=== PATIENT | female | born 1960 | race Caucasian/White ===

== ENCOUNTER 2016-07-04 16:53 | Emergency (ER) | payer BC ==
[~2016-07-04] VITALS: Ht 160 cm; Wt 68.0 kg
[2016-07-04 16:53] VITALS: BP 169/114; PULSE 92; RESP 20; TEMP 98.1; O2SAT 99
[~2016-07-04 16:53] MED LIST: CLON2TAB4 PO; TIZA4TAB11 PO; ZIPR80CA26 PO
--- NOTE | 2016-07-04 16:53 | NUR ---
Patient to ER bed 8 to gown for evaluation. Side rails up. Report given to KADI Webb.
--- NOTE | 2016-07-04 16:57 | NUR ---
ER at bedside examining patient.
[2016-07-04] MEDS ORDERED: NACL 0.9% 1,000 ML IV ONE (17:00)
[2016-07-04] MEDS ORDERED: LORazepam 2 MG/ML VIAL (FOR ER USE) IVP ONE ×2 (17:00→18:45)
--- NOTE | 2016-07-04 17:08 | NUR ---
# 22 gauge angiocath placed to RIGHT AC. Use of asceptic technique. Opsite placed over site. Blood return noted. Blood for lab drawn from site. Flushed with 10 cc of normal saline. No evidence of infiltration noted. Patient tolerated well.
--- NOTE | 2016-07-04 17:10 | NUR ---
PT. TO ER Eric4 FOR ANXIETY RELATED SYMPTOMS, STATES THAT SHE HAD BEEN FEELING ANXIOUS SINCE LAST NIGHT, STATE THAT SHE WAS NOT ABLE TO FIND HER BP MEDICATION WHICH BROUGHT IN ANXIETY, STATES SHE HAD MILD PAIN IN HER HEAD, WHICH FEELS LIKE SOME WEIRD HEADACHE, NO OTHER COMPLAINTS AT THIS TIME HEADACHE 07/04
--- NOTE | 2016-07-04 17:20 | NUR ---
PT. OUT TO RADILOGY [facility]IA [facility]
[2016-07-04 17:22] LABS: BASOPHILS % (AUTO) 0.6 % (0.0-2.0); EOSINOPHILS % (AUTO) 0.5 % (0.0-4.0); HEMATOCRIT 39.5 % (36-48); LYMPHOCYTES # (AUTO) 1.9 K/uL (1.0-5.5); MEAN CORPUSCULAR HEMOGLOBIN 29 pg (27-31); MEAN CORPUSCULAR HGB CONC 33 % (32-36); MEAN CORPUSCULAR VOLUME 87 fL (79.0-98.0); MONOCYTES # (AUTO) 0.5 K/uL (0.0-1.0); MONOCYTES % (AUTO) 9.1 % (1.7-9.3); NEUTROPHILS # (AUTO) 3.1 K/uL (1.8-7.7); NEUTROPHILS % (AUTO) 54.8 % (40.0-70.0); PLATELET COUNT (AUTO) 258 K/uL (130-430); RED BLOOD CELL COUNT(AUTO) 4.55 MIL/uL (4.2-6.2); RED CELL DISTRIBUTION WIDTH 12.7 % (9.0-15.0); WHITE BLOOD COUNT (AUTO) 5.5 K/uL (4.8-10.8)
[2016-07-04 17:36] LABS: CALCIUM 9.1 mg/dL (8.4-11.0); CREATININE 0.97 mg/dL (0.55-1.30); POTASSIUM 3.5 mmol/L (3.5-5.1)
[2016-07-04 17:52] LABS: TOTAL BILIRUBIN 0.3 mg/dL (0.0-1.0); TOTAL PROTEIN, SERUM 8.3 g/dL (6.4-8.3)
[2016-07-04 17:54] LABS: INR 1.1 (0.8-1.2); PROTHROMBIN TIME 11.8 SECS (9.5-12.5)
[2016-07-04] MEDS ORDERED: KETOROLAC TROMETHAMINE 30 MG VIAL IVP ONE (18:00)
[2016-07-04] MEDS ORDERED: PROCHLORPERAZINE EDISYLATE 10 MG/2 ML VIAL IVP ONE (18:00)
--- NOTE | 2016-07-04 18:00 | NUR ---
PT. STATES STILL FEELING ANXIOUS, NOTIFIED, WILL ADMINISTERED 1 MG OF ATIVAN IVP
--- NOTE | 2016-07-04 18:50 | NUR ---
PT. STATES SHE FEELS MUCH BETTER STATES NO PAIN STATES NO ANXIETY
[2016-07-04 19:00] VITALS: BP 121/62; PULSE 67; RESP 18; TEMP 98.3; O2SAT 99
--- NOTE | 2016-07-04 19:00 | NUR ---
Patient given written and verbal discharge instructions and verbalizes understanding. ER MD DR. PORTILLO discussed with patient the results and treatment provided. Patient in stable condition. ID arm band removed. IV catheter removed intact and dressing applied, no active bleeding. NO Rx given. Patient educated on pain management and to follow up with PMD. Pain Scale 0/10 Opportunity for questions provided and answered.
== END 2016-07-04 19:00 | disposition home or self-care (01) ==
LOC: SED 16:53
DX: F41.9 Anxiety disorder, unspecified (principal); I10 Essential (primary) hypertension; Z88.8 Allergy status to other drugs, medicaments and biological substances
CPT/HCPCS: 36415; 70450; 71010; 80053; 84484; 85025; 85610; 85730; 93005; 96361; 96374; 96375; 96376; 99285; J0780; J1885; J2060; J7030

== ENCOUNTER 2016-11-07 09:46 | Inpatient (IN) | payer BC ==
[2016-11-07] VITALS (14 sets, daily range): BP systolic 90–169
[~2016-11-07] VITALS: Ht 160 cm; Wt 64.4 kg
[2016-11-07] MEDS ORDERED: LEVALBUTEROL HCL 0.63 MG/3 ML VIAL.NEB INH SCH (10:15)
[2016-11-07 10:45] LABS: BASOPHILS % (AUTO) 0.3 % (0.0-2.0); EOSINOPHILS % (AUTO) 0.3 % (0.0-4.0); HEMATOCRIT 33.1 % (36-48); HEMOGLOBIN 10.9 g/dL (12.0-16.0); LYMPHOCYTES % (AUTO) 9.8 % (20.5-51.5); MEAN CORPUSCULAR HEMOGLOBIN 28 pg (27-31); MEAN CORPUSCULAR HGB CONC 33 % (32-36); MEAN CORPUSCULAR VOLUME 86 fL (79.0-98.0); MONOCYTES # (AUTO) 0.3 K/uL (0.0-1.0); MONOCYTES % (AUTO) 3.3 % (1.7-9.3); NEUTROPHILS % (AUTO) 86.3 % (40.0-70.0); PLATELET COUNT (AUTO) 219 K/uL (130-430); RED BLOOD CELL COUNT(AUTO) 3.84 MIL/uL (4.2-6.2); RED CELL DISTRIBUTION WIDTH 13.1 % (9.0-15.0); WHITE BLOOD COUNT (AUTO) 10.3 K/uL (4.8-10.8)
[2016-11-07] MEDS ORDERED: IOHEXOL 350 mgI/mL, 150 ML INFUS..BTL IV ONE (10:54)
[2016-11-07 10:57] LABS: CALCIUM 8.4 mg/dL (8.4-11.0); CREATININE 1.19 mg/dL (0.55-1.30); POTASSIUM 3.1 mmol/L (3.5-5.1)
[2016-11-07 11:00] LABS: INR 1.1 (0.8-1.2); PROTHROMBIN TIME 11.9 SECS (9.5-12.5)
[2016-11-07 11:03] LABS: ALBUMIN 2.7 g/dL (3.4-4.8); TOTAL BILIRUBIN 0.4 mg/dL (0.0-1.0); TOTAL PROTEIN, SERUM 6.8 g/dL (6.4-8.3)
[2016-11-07 11:37] LABS: BILIRUBIN,URINE NEGATIVE (NEGATIVE); CLARITY/URINE CLEAR (CLEAR); COLOR,URINE YELLOW (YELLOW); GLUCOSE,URINE NEGATIVE (NEGATIVE); KETONES,URINE NEGATIVE (NEGATIVE); LEUKOCYTE ESTERASE ,URINE NEGATIVE (NEGATIVE); NITRITE, URINE NEGATIVE (NEGATIVE); PROTEIN URINE TRACE (NEGATIVE); UROBILINOGEN,URINE 0.2 (0.2-1.0)
[2016-11-07 11:41] LABS: BLOOD, URINE TRACE (NEGATIVE)
[2016-11-07 11:59] LABS: BACTERIA,URINE RARE /HPF (None Seen); WBC,URINE 0-3 /HPF (0-3)
[2016-11-07] MEDS ORDERED: NS 500 ML IV ONE (12:15)
[2016-11-07] MEDS ORDERED: CEFAZOLIN SODIUM 500 MG in D5W 50 ML IV ONE (12:15)
[2016-11-07] MEDS ORDERED: CEFAZOLIN SODIUM 500 MG VIAL ONE (12:26)
[2016-11-07] MEDS ORDERED: IBUPROFEN 800 MG TABLET PO ONE (12:30)
[2016-11-07] MEDS ORDERED: KETOROLAC TROMETHAMINE 30 MG VIAL IVP ONE (12:30)
[2016-11-07] MEDS ORDERED: LEVOFLOXACIN 500 MG/D5W 100 ML IV ONE (12:57)
[2016-11-07] MEDS ORDERED: VANCOMYCIN HCL 1000 MG/VIAL IV ONE (12:58)
[2016-11-07] MEDS: tiZANidine HCL 4 MG TABLET PO SCH ×2 (14:15→20:52)
[2016-11-07] MEDS ORDERED: POTASSIUM CHLORIDE 20 MEQ TAB.PRT.SR PO ONE (14:15)
[2016-11-07] MEDS ORDERED: IPRATROPIUM/ALBUTEROL SULFATE 3 ML AMPUL.NEB INH PRN (14:15)
[2016-11-07] MEDS ORDERED: LEVOFLOXACIN 500 MG/D5W 100 ML IV SCH (14:30)
[2016-11-07] MEDS ORDERED: MILK OF MAGNESIA 30 ML UDC PO PRN (14:30)
[2016-11-07] MEDS ORDERED: MILK OF MAGNESIA 30 ML UDC PO ONE (14:30)
[2016-11-07] MEDS: clonazePAM 0.5 MG TABLET PO SCH ×4 (15:00→20:53)
[2016-11-07] MEDS: IPRATROPIUM/ALBUTEROL SULFATE 3 ML AMPUL.NEB INH SCH ×3 (15:22→23:57)
[2016-11-07] MEDS: MORPHINE 2 MG/ML INJ. SYRINGE IVP PRN (16:37)
[2016-11-07] MEDS ORDERED: ZIPRASIDONE HCL 20 MG CAPSULE (GEODON) PO SCH (18:00)
[2016-11-07] MEDS ORDERED: NACL 0.9% 1,000 ML IV ONE ×2 (18:00)
[2016-11-07] MEDS ORDERED: VANCOMYCIN HCL 1,000 MG in NS 250 ML IV SCH (18:00)
[2016-11-07] MEDS ORDERED: AMPICILLIN SODIUM/SULBACTAM NA 1.5 GM VIAL ONE (20:27)
[2016-11-07] MEDS: NACL 0.9% 1,000 ML IV SCH (20:51)
[2016-11-07] MEDS: AMPICILLIN SODIUM/SULBACTAM NA 1.5 GM in NS 50 ML IV SCH (20:51)
[2016-11-07] MEDS: methylPREDNISolone SOD SUCC 40 MG/ML VIAL IVP SCH (20:52)
[2016-11-07] MEDS: POTASSIUM CHLORIDE 20 MEQ TAB.PRT.SR PO SCH (20:53)
[2016-11-07] MEDS: MORPHINE 4 MG/ML INJ. SYRINGE IVP PRN (21:21)
[2016-11-07] MEDS: QUEtiapine FUMARATE 100 MG TABLET PO SCH (21:21)
[2016-11-07] MEDS: ALPRAZolam 0.25 MG TABLET PO SCH (21:22)
[2016-11-07] MEDS ORDERED: NS 500 ML IV PRN (23:15)
[2016-11-08] VITALS (22 sets, daily range): BP systolic 89–145
[2016-11-08] MEDS ORDERED: AMPICILLIN SODIUM/SULBACTAM NA 1.5 GM VIAL ONE (01:14)
[2016-11-08] MEDS: AMPICILLIN SODIUM/SULBACTAM NA 1.5 GM in NS 50 ML IV SCH ×4 (01:33→17:36)
[2016-11-08] MEDS: MORPHINE 2 MG/ML INJ. SYRINGE IVP PRN ×5 (02:28→20:36)
[2016-11-08] MEDS: IPRATROPIUM/ALBUTEROL SULFATE 3 ML AMPUL.NEB INH SCH ×6 (02:39→23:40)
[2016-11-08] MEDS: NACL 0.9% 1,000 ML IV SCH ×3 (04:27→19:19)
[2016-11-08] MEDS: tiZANidine HCL 4 MG TABLET PO SCH ×2 (08:52→21:42)
[2016-11-08] MEDS: POTASSIUM CHLORIDE 20 MEQ TAB.PRT.SR PO SCH ×2 (08:52→21:40)
[2016-11-08] MEDS: clonazePAM 0.5 MG TABLET PO SCH ×3 (08:52→21:42)
[2016-11-08] MEDS: methylPREDNISolone SOD SUCC 40 MG/ML VIAL IVP SCH ×2 (08:52→21:40)
[2016-11-08] MEDS ORDERED: QUEtiapine FUMARATE 100 MG TABLET PO SCH (09:30)
[2016-11-08] MEDS ORDERED: BISACODYL 5 MG TABLET.DR (DULCOLAX) PO PRN (10:00)
[2016-11-08] MEDS ORDERED: BISACODYL 10 MG/SUPPOSITORY RC ONE (10:00)
[2016-11-08] MEDS ORDERED: NS 500 ML IV ONE (10:00)
[2016-11-08] MEDS ORDERED: NACL 0.9% 500 ML IV SCH (10:00)
[2016-11-08 10:30] LABS: BASOPHILS % (AUTO) 0.1 % (0.0-2.0); HEMOGLOBIN 8.7 g/dL (12.0-16.0); LYMPHOCYTES # (AUTO) 0.3 K/uL (1.0-5.5); LYMPHOCYTES % (AUTO) 3.6 % (20.5-51.5); MEAN CORPUSCULAR HEMOGLOBIN 28 pg (27-31); MEAN CORPUSCULAR HGB CONC 32 % (32-36); MEAN CORPUSCULAR VOLUME 88 fL (79.0-98.0); MONOCYTES # (AUTO) 0.3 K/uL (0.0-1.0); MONOCYTES % (AUTO) 3.2 % (1.7-9.3); NEUTROPHILS # (AUTO) 9.1 K/uL (1.8-7.7); NEUTROPHILS % (AUTO) 93.1 % (40.0-70.0); PLATELET COUNT (AUTO) 207 K/uL (130-430); RED BLOOD CELL COUNT(AUTO) 3.08 MIL/uL (4.2-6.2); WHITE BLOOD COUNT (AUTO) 9.7 K/uL (4.8-10.8)
[2016-11-08 10:40] LABS: CALCIUM 7.7 mg/dL (8.4-11.0); CREATININE 0.83 mg/dL (0.55-1.30); POTASSIUM 3.9 mmol/L (3.5-5.1)
[2016-11-08] MEDS: QUEtiapine FUMARATE 100 MG TABLET PO SCH ×2 (12:05→21:41)
[2016-11-08 13:41] LABS: ABG TOTAL HEMOGLOBIN 9.8 G/dL (12.0-18.0); BLOOD GAS BASE EXCESS -1.1 mmol/L (-3.0-3.0); BLOOD GAS COHb% 0.2 % (0.5-1.5); BLOOD GAS PH 7.393 (7.350-7.450); BLOOD O2Hb% 88.7 % (94.0-97.0)
[2016-11-08] MEDS: ALPRAZolam 0.25 MG TABLET PO SCH (21:42)
[2016-11-09] VITALS (13 sets, daily range): BP systolic 108–169
[2016-11-09] MEDS: AMPICILLIN SODIUM/SULBACTAM NA 1.5 GM in NS 50 ML IV SCH ×4 (00:27→18:00)
[2016-11-09] MEDS: MORPHINE 2 MG/ML INJ. SYRINGE IVP PRN ×4 (00:47→17:15)
[2016-11-09] MEDS: NACL 0.9% 1,000 ML IV SCH (01:06)
[2016-11-09] MEDS: IPRATROPIUM/ALBUTEROL SULFATE 3 ML AMPUL.NEB INH SCH ×6 (03:00→23:00)
[2016-11-09] MEDS: MORPHINE 4 MG/ML INJ. SYRINGE IVP PRN ×2 (04:49→21:25)
[2016-11-09 06:49] LABS: BASOPHILS % (AUTO) 0.1 % (0.0-2.0); HEMATOCRIT 28.8 % (36-48); HEMOGLOBIN 9.5 g/dL (12.0-16.0); LYMPHOCYTES # (AUTO) 0.6 K/uL (1.0-5.5); LYMPHOCYTES % (AUTO) 4.6 % (20.5-51.5); MEAN CORPUSCULAR HEMOGLOBIN 29 pg (27-31); MEAN CORPUSCULAR HGB CONC 33 % (32-36); MEAN CORPUSCULAR VOLUME 87 fL (79.0-98.0); MONOCYTES # (AUTO) 0.3 K/uL (0.0-1.0); NEUTROPHILS # (AUTO) 12.5 K/uL (1.8-7.7); NEUTROPHILS % (AUTO) 93.3 % (40.0-70.0); PLATELET COUNT (AUTO) 251 K/uL (130-430); RED BLOOD CELL COUNT(AUTO) 3.29 MIL/uL (4.2-6.2); RED CELL DISTRIBUTION WIDTH 13.4 % (9.0-15.0); WHITE BLOOD COUNT (AUTO) 13.4 K/uL (4.8-10.8)
[2016-11-09 07:13] LABS: ALBUMIN 2.7 g/dL (3.4-4.8); CALCIUM 8.5 mg/dL (8.4-11.0); CREATININE 0.74 mg/dL (0.55-1.30); POTASSIUM 4.4 mmol/L (3.5-5.1); TOTAL BILIRUBIN 0.2 mg/dL (0.0-1.0); TOTAL PROTEIN, SERUM 6.8 g/dL (6.4-8.3)
[2016-11-09] MEDS: clonazePAM 0.5 MG TABLET PO SCH ×3 (08:51→20:51)
[2016-11-09] MEDS: POTASSIUM CHLORIDE 20 MEQ TAB.PRT.SR PO SCH ×2 (08:51→20:50)
[2016-11-09] MEDS: QUEtiapine FUMARATE 100 MG TABLET PO SCH ×2 (08:52→20:51)
[2016-11-09] MEDS: tiZANidine HCL 4 MG TABLET PO SCH ×2 (08:53→20:51)
[2016-11-09] MEDS: methylPREDNISolone SOD SUCC 40 MG/ML VIAL IVP SCH (08:53)
[2016-11-09] MEDS ORDERED: FUROSEMIDE 20 MG/2 ML VIAL IVP ONE (09:00)
[2016-11-09] MEDS ORDERED: ENALAPRILAT DIHYDRATE 1.25 MG/ML VIAL IVP PRN (17:00)
[2016-11-09] MEDS: ALPRAZolam 0.25 MG TABLET PO SCH (20:50)
[2016-11-10] MEDS: MORPHINE 2 MG/ML INJ. SYRINGE IVP PRN (00:44)
[2016-11-10] MEDS: AMPICILLIN SODIUM/SULBACTAM NA 1.5 GM in NS 50 ML IV SCH ×2 (00:44→06:32)
[2016-11-10] MEDS: IPRATROPIUM/ALBUTEROL SULFATE 3 ML AMPUL.NEB INH SCH ×3 (03:00→11:00)
[2016-11-10] MEDS: MORPHINE 4 MG/ML INJ. SYRINGE IVP PRN ×2 (04:22→08:43)
[2016-11-10 07:51] VITALS: BP_SYST 145
[2016-11-10 08:00] VITALS: BP_SYST 144
[2016-11-10 08:01] LABS: BASOPHILS % (AUTO) 0.1 % (0.0-2.0); EOSINOPHILS % (AUTO) 0.1 % (0.0-4.0); HEMATOCRIT 27.9 % (36-48); HEMOGLOBIN 9.1 g/dL (12.0-16.0); LYMPHOCYTES % (AUTO) 18.3 % (20.5-51.5); MEAN CORPUSCULAR HEMOGLOBIN 28 pg (27-31); MEAN CORPUSCULAR HGB CONC 33 % (32-36); MEAN CORPUSCULAR VOLUME 86 fL (79.0-98.0); MONOCYTES # (AUTO) 0.7 K/uL (0.0-1.0); MONOCYTES % (AUTO) 6.3 % (1.7-9.3); NEUTROPHILS % (AUTO) 75.2 % (40.0-70.0); PLATELET COUNT (AUTO) 305 K/uL (130-430); RED BLOOD CELL COUNT(AUTO) 3.23 MIL/uL (4.2-6.2); RED CELL DISTRIBUTION WIDTH 13.2 % (9.0-15.0); WHITE BLOOD COUNT (AUTO) 10.7 K/uL (4.8-10.8)
[2016-11-10 08:09] LABS: CALCIUM 8.2 mg/dL (8.4-11.0); CREATININE 0.77 mg/dL (0.55-1.30); POTASSIUM 3.8 mmol/L (3.5-5.1)
[2016-11-10] MEDS: QUEtiapine FUMARATE 100 MG TABLET PO SCH (08:44)
[2016-11-10] MEDS: clonazePAM 0.5 MG TABLET PO SCH (08:44)
[2016-11-10] MEDS: tiZANidine HCL 4 MG TABLET PO SCH (08:44)
[2016-11-10] MEDS: POTASSIUM CHLORIDE 20 MEQ TAB.PRT.SR PO SCH (08:44)
[2016-11-10] MEDS ORDERED: DOXY-4 PO (09:28)
[2016-11-10 10:13] VITALS: BP_SYST 140
== END 2016-11-10 11:30 | disposition home or self-care (01) | DRG 205 ==
LOC: SED 09:46 → SIC 13:00 → STU 11-09 11:10
PROVIDERS: ADMIT Internal Medicine; ATTEND Internal Medicine
DX: J95.4 Chemical pneumonitis due to anesthesia (principal); J96.00 Acute respiratory failure, unspecified whether with hypoxia or hypercapnia; J81.0 Acute pulmonary edema; F32.3 Major depressive disorder, single episode, severe with psychotic features; M54.9 Dorsalgia, unspecified; E86.0 Dehydration; M79.7 Fibromyalgia; I10 Essential (primary) hypertension; D64.9 Anemia, unspecified; G89.4 Chronic pain syndrome; F41.9 Anxiety disorder, unspecified; F17.200 Nicotine dependence, unspecified, uncomplicated; Y83.8 Other surgical procedures as the cause of abnormal reaction of the patient, or of later complication, without mention of misadventure at the time of the procedure; Y92.89 Other specified places as the place of occurrence of the external cause; Z88.8 Allergy status to other drugs, medicaments and biological substances; Z79.899 Other long term (current) drug therapy; Z82.49 Family history of ischemic heart disease and other diseases of the circulatory system; Y93.89 Activity, other specified; Y99.8 Other external cause status
CPT/HCPCS: 36415; 36600; 71010; 71275; 74000-TC; 80048; 80053; 81000-TC; 82803-TC; 83605; 83735-TC; 83880; 84484; 85025; 85379; 85610-TC; 85730-TC; 86886; 86900; 86901; 87040-TC; 87081; 93005; 93306; 94010; 94640; 94760; 96365; 96375; 99285; J0295; J0690; J1030; J1885; J1940; J1956; J2270; J3370; J7030; J7040; J7050; J7060; Q9967

== ENCOUNTER 2017-01-19 17:45 | Emergency (ER) | payer BC ==
[~2017-01-19] VITALS: Ht 160 cm; Wt 68.0 kg
[~2017-01-19 17:45] MED LIST changes: +DOXY-4 PO
[2017-01-19 17:49] VITALS: BP_SYST 154
--- NOTE | 2017-01-19 17:50 | NUR ---
Patient to ER bed 2 to gown for evaluation. Side rails up. Report given to Nancy WALLIS.
--- NOTE | 2017-01-19 18:08 | NUR ---
Pt complain of cramping/pressure pain to chest and left arm. Pt states cramping of left arm happened earlier today and also has pain to back of head. Per pt, has "chills," nausea, vomiting and diarrhea for two days. Pt was wheeled into ER. No other injuries/complaints per pt or noted.
--- NOTE | 2017-01-19 18:16 | NUR ---
ER at bedside examining patient.
[2017-01-19] MEDS ORDERED: LORazepam 2 MG/ML VIAL (FOR ER USE) IVP ONE (18:30)
[2017-01-19] MEDS ORDERED: DIPHENHYDRAMINE INJ 50 MG/ML VIAL IVP ONE (18:30)
[2017-01-19] MEDS ORDERED: NACL 0.9% 1,000 ML IV ONE (18:30)
[2017-01-19 18:48] LABS: BASOPHILS % (AUTO) 0.1 % (0.0-2.0); HEMATOCRIT 44.4 % (36-48); HEMOGLOBIN 14.1 g/dL (12.0-16.0); LYMPHOCYTES # (AUTO) 0.9 K/uL (1.0-5.5); LYMPHOCYTES % (AUTO) 8.9 % (20.5-51.5); MEAN CORPUSCULAR HEMOGLOBIN 27 pg (27-31); MEAN CORPUSCULAR HGB CONC 32 % (32-36); MEAN CORPUSCULAR VOLUME 86 fL (79.0-98.0); MONOCYTES # (AUTO) 0.4 K/uL (0.0-1.0); MONOCYTES % (AUTO) 3.6 % (1.7-9.3); NEUTROPHILS # (AUTO) 9.2 K/uL (1.8-7.7); NEUTROPHILS % (AUTO) 87.4 % (40.0-70.0); PLATELET COUNT (AUTO) 324 K/uL (130-430); RED BLOOD CELL COUNT(AUTO) 5.18 MIL/uL (4.2-6.2); RED CELL DISTRIBUTION WIDTH 13.6 % (9.0-15.0); WHITE BLOOD COUNT (AUTO) 10.5 K/uL (4.8-10.8)
--- NOTE | 2017-01-19 18:55 | NUR ---
Medications were given, pt tolerated well. No adverse reaction noted, will continue to monitor.
[2017-01-19 19:07] LABS: CALCIUM 10.3 mg/dL (8.4-11.0); CREATININE 1.22 mg/dL (0.55-1.30); POTASSIUM 3.7 mmol/L (3.5-5.1)
[2017-01-19 19:11] LABS: INR 1.1 (0.8-1.2); PROTHROMBIN TIME 11.5 SECS (9.5-12.5)
[2017-01-19 19:12] LABS: ALBUMIN 4.5 g/dL (3.4-4.8); TOTAL BILIRUBIN 0.4 mg/dL (0.0-1.0)
--- NOTE | 2017-01-19 19:15 | NUR ---
Patient resting on gurney. Significant other at bedside.
[2017-01-19] MEDS ORDERED: KETOROLAC TROMETHAMINE 30 MG VIAL IVP ONE (19:45)
[2017-01-19] MEDS ORDERED: PROCHLORPERAZINE EDISYLATE 10 MG/2 ML VIAL IVP ONE (19:45)
--- NOTE | 2017-01-19 20:10 | NUR ---
No adverse reactions noted after medication administration. Will continue to monitor.
[2017-01-19 20:32] LABS: BARBITURATE, URINE NEGATIVE (NEG <=200)
[2017-01-19 20:33] LABS: BENZODIAZEPINE, URINE POSITIVE (NEG <=150); CANNABINOID, URINE NEGATIVE (NEG <=50); COCAINE, URINE NEGATIVE (NEG <=150); METHAMPHETAMINES SCREEN,URINE NEGATIVE (NEG <=500); OPIATE, URINE POSITIVE (NEG <=100); PHENCYCLIDINE SCREEN,URINE NEGATIVE (NEG <=25); UR TRICYCLIC ANTIDEPRESSANTS NEGATIVE (NEG <=300); URINE AMPHETAMINE POSITIVE (NEG <=500); URINE METHADONE NEGATIVE (NEG <=200); URINE OXYCODONE SCREEN NEGATIVE (NEG <=100); URINE PROPOXYPHENE SCREEN NEGATIVE (NEG <=300)
[2017-01-19 22:55] VITALS: BP_SYST 147
--- NOTE | 2017-01-19 22:55 | NUR ---
Patient given written and verbal discharge instructions and verbalizes understanding. ER MD discussed with patient the results and treatment provided. Patient in stable condition. ID arm band removed. IV catheter removed intact and dressing applied, no active bleeding. Patient educated on pain management and to follow up with PMD. Pain Scale 2/10 tolerable to patient. Opportunity for questions provided and answered.
== END 2017-01-19 22:55 | disposition home or self-care (01) ==
LOC: SED 17:45
DX: R25.8 Other abnormal involuntary movements (principal); I10 Essential (primary) hypertension; F41.9 Anxiety disorder, unspecified; Z88.8 Allergy status to other drugs, medicaments and biological substances
CPT/HCPCS: 36415; 71010; 80053; 80307; 84484; 85025; 85610; 85730; 96361; 96374; 96375; 99285; J0780; J1200; J1885; J2060; J7030

== ENCOUNTER 2017-01-21 11:04 | Inpatient (IN) | payer BC ==
[~2017-01-21] VITALS: Ht 160 cm; Wt 68.0 kg
[2017-01-21 11:09] VITALS: BP_SYST 80
[2017-01-21] MEDS ORDERED: DIPHENHYDRAMINE INJ 50 MG/ML VIAL IVP ONE (11:15)
[2017-01-21] MEDS ORDERED: MORPHINE 2 MG/ML INJ. SYRINGE IVP ONE ×3 (11:15→13:45)
[2017-01-21] MEDS ORDERED: LORazepam 2 MG/ML VIAL IVP ONE (11:15)
[2017-01-21] MEDS ORDERED: NACL 0.9% 1,000 ML IV SCH (11:19)
[2017-01-21 11:45] LABS: BASOPHILS % (AUTO) 0.4 % (0.0-2.0); EOSINOPHILS # (AUTO) 0.1 K/uL (0.0-0.4); EOSINOPHILS % (AUTO) 0.9 % (0.0-4.0); HEMATOCRIT 39.8 % (36-48); LYMPHOCYTES # (AUTO) 2.1 K/uL (1.0-5.5); LYMPHOCYTES % (AUTO) 36.7 % (20.5-51.5); MEAN CORPUSCULAR HEMOGLOBIN 28 pg (27-31); MEAN CORPUSCULAR HGB CONC 33 % (32-36); MEAN CORPUSCULAR VOLUME 85 fL (79.0-98.0); MONOCYTES # (AUTO) 0.4 K/uL (0.0-1.0); MONOCYTES % (AUTO) 7.6 % (1.7-9.3); NEUTROPHILS # (AUTO) 3.1 K/uL (1.8-7.7); NEUTROPHILS % (AUTO) 54.4 % (40.0-70.0); PLATELET COUNT (AUTO) 287 K/uL (130-430); RED BLOOD CELL COUNT(AUTO) 4.67 MIL/uL (4.2-6.2); RED CELL DISTRIBUTION WIDTH 13.1 % (9.0-15.0)
[2017-01-21 11:47] LABS: ALCOHOL, BLOOD < 3 mg/dL (<10); PROTHROMBIN TIME 11.3 SECS (9.5-12.5)
[2017-01-21 11:49] LABS: ACETAMINOPHEN 3 ug/mL (1-30); ALANINE AMINOTRANSFERASE 25 U/L (12-78); ALBUMIN 4.3 g/dL (3.4-4.8); ASPARTATE AMINOTRANSFERASE 32 U/L (10-37); CHLORIDE 100 mmol/L (98-107); GLUCOSE 117 mg/dL (70-99); POTASSIUM 3.1 mmol/L (3.5-5.1); SODIUM SERUM 139 mmol/L (136-145); TOTAL BILIRUBIN 0.3 mg/dL (0.0-1.0); UREA NITROGEN, BLOOD 19 mg/dL (8-21); WHITE BLOOD COUNT (AUTO) 5.7 K/uL (4.8-10.8)
[2017-01-21] MEDS ORDERED: LORazepam 2 MG/ML VIAL (FOR ER USE) ONE (11:52)
[2017-01-21 11:57] LABS: ANION GAP 10 (5-15); CALCIUM 9.2 mg/dL (8.4-11.0); GFR AFRICAN AMERICAN 84 mL/min (>90)
[2017-01-21] MEDS ORDERED: POTASSIUM CHLORIDE 20 MEQ TAB.PRT.SR PO ONE (12:30)
[2017-01-21 12:50] LABS: BILIRUBIN,URINE NEGATIVE (NEGATIVE); BLOOD, URINE NEGATIVE (NEGATIVE); CLARITY/URINE CLEAR (CLEAR); COLOR,URINE YELLOW (YELLOW); GLUCOSE,URINE NEGATIVE (NEGATIVE); KETONES,URINE NEGATIVE (NEGATIVE); LEUKOCYTE ESTERASE ,URINE NEGATIVE (NEGATIVE); NITRITE, URINE NEGATIVE (NEGATIVE); PROTEIN URINE NEGATIVE (NEGATIVE); UROBILINOGEN,URINE 0.2 (0.2-1.0)
[2017-01-21] MEDS ORDERED: QUET300T2 PO (12:50)
[2017-01-21] MEDS ORDERED: HYDR-4100 PO (12:50)
[2017-01-21] MEDS ORDERED: ONDANSETRON HCL 4 MG/2 ML VIAL IVP ONE ×2 (13:00→13:45)
[2017-01-21 13:05] LABS: BENZODIAZEPINE, URINE POSITIVE (NEG <=150); OPIATE, URINE POSITIVE (NEG <=100); URINE AMPHETAMINE POSITIVE (NEG <=500)
[2017-01-21 13:11] LABS: BARBITURATE, URINE NEGATIVE (NEG <=200); CANNABINOID, URINE NEGATIVE (NEG <=50); COCAINE, URINE NEGATIVE (NEG <=150); METHAMPHETAMINES SCREEN,URINE NEGATIVE (NEG <=500); PHENCYCLIDINE SCREEN,URINE NEGATIVE (NEG <=25); UR TRICYCLIC ANTIDEPRESSANTS NEGATIVE (NEG <=300); URINE METHADONE NEGATIVE (NEG <=200); URINE OXYCODONE SCREEN NEGATIVE (NEG <=100); URINE PROPOXYPHENE SCREEN NEGATIVE (NEG <=300)
[2017-01-21] MEDS ORDERED: PANTOPRAZOLE SODIUM 40 MG/VIAL (PROTONIX) IVP ONE (13:45)
[2017-01-21 16:06] VITALS: BP_SYST 144
[2017-01-21] MEDS ORDERED: FLU VACC QS 2017-18(36MOS+)/PF 0.5 ML/SYR SYRINGE I.M. PRN (16:30)
[2017-01-21] MEDS ORDERED: HYDROcodone/ACETAMIN 10-325 MG TAB PO PRN ×2 (17:30→18:45)
[2017-01-21] MEDS ORDERED: ASPIRIN 81 MG TABLET(ECOTRIN) PO ONE (17:30)
[2017-01-21] MEDS ORDERED: clonazePAM 0.5 MG TABLET PO PRN (18:45)
[2017-01-21] MEDS ORDERED: ONDANSETRON HCL 4 MG/2 ML VIAL IVP PRN (19:00)
[2017-01-21] MEDS ORDERED: ACETAMINOPHEN 325 MG TABLET PO PRN (19:00)
[2017-01-21] MEDS ORDERED: PANTOPRAZOLE SODIUM 40 MG TAB PO ONE (20:00)
[2017-01-21 20:08] LABS: THYROID STIMULATING HORMONE 0.39 uIu/mL (0.36-3.74)
[2017-01-21] MEDS: tiZANidine HCL 4 MG TABLET PO SCH (20:39)
[2017-01-21] MEDS ORDERED: QUEtiapine FUMARATE 100 MG TABLET PO SCH (21:00)
[2017-01-21] MEDS: KCL 20 mEq in D5/0.45NS 1000mL 1,000 ML IV SCH (21:48)
[2017-01-21] MEDS ORDERED: cloNIDine HCL 0.1 MG TABLET PO PRN (22:15)
[2017-01-22 00:04] VITALS: BP_SYST 110
[2017-01-22 04:48] VITALS: BP_SYST 139
[2017-01-22] MEDS: MORPHINE 2 MG/ML INJ. SYRINGE IVP PRN ×2 (07:31→11:33)
[2017-01-22] MEDS: KCL 20 mEq in D5/0.45NS 1000mL 1,000 ML IV SCH (07:37)
[2017-01-22 07:44] VITALS: BP_SYST 150
[2017-01-22 08:17] LABS: ANION GAP 8 (5-15); CALCIUM 8.5 mg/dL (8.4-11.0); CHLORIDE 104 mmol/L (98-107); CREATININE 0.84 mg/dL (0.55-1.30); GLUCOSE 119 mg/dL (70-99); POTASSIUM 3.7 mmol/L (3.5-5.1); SODIUM SERUM 142 mmol/L (136-145); UREA NITROGEN, BLOOD 14 mg/dL (8-21)
[2017-01-22] MEDS: tiZANidine HCL 4 MG TABLET PO SCH (08:18)
[2017-01-22 08:45] LABS: GFR AFRICAN AMERICAN 91 mL/min (>90)
[2017-01-22] MEDS ORDERED: PANTOPRAZOLE SODIUM 40 MG TAB PO SCH (09:00)
[2017-01-22] MEDS ORDERED: ASPIRIN 81 MG TABLET(ECOTRIN) PO SCH (09:00)
[2017-01-22 10:52] VITALS: BP_SYST 106
[2017-01-22 12:04] VITALS: BP_SYST 129
== END 2017-01-22 12:25 | disposition home or self-care (01) | DRG 313 ==
LOC: SED 11:04 → STU 15:34
PROVIDERS: ADMIT Internal Medicine; ATTEND Internal Medicine
DX: R07.89 Other chest pain (principal); I10 Essential (primary) hypertension; G89.4 Chronic pain syndrome; E87.6 Hypokalemia; F31.9 Bipolar disorder, unspecified; M54.2 Cervicalgia; M54.9 Dorsalgia, unspecified; M79.7 Fibromyalgia; G47.00 Insomnia, unspecified; F17.210 Nicotine dependence, cigarettes, uncomplicated; F41.9 Anxiety disorder, unspecified; Z88.8 Allergy status to other drugs, medicaments and biological substances; Z98.82 Breast implant status
CPT/HCPCS: 36415; 70450-TC; 71010; 80048; 80053; 80307; 81003; 83605; 83735-TC; 84443-TC; 84484; 85025; 85610-TC; 85730-TC; 87040-TC; 87086; 93005; 96361; 96374; 96375; 96376; 99285; C9113; G0480; G0481; G0482; J1200; J2060; J2270; J2405; J7030; Q2037

== ENCOUNTER 2018-02-15 00:25 | Inpatient (IN) | payer BC ==
[~2018-02-15] VITALS: Ht 160 cm; Wt 74.8 kg
[2018-02-15 00:25] VITALS: BP_SYST 88
[~2018-02-15 00:25] MED LIST changes: +CLON2TAB11 PO; -CLON2TAB4 PO; -DOXY-4 PO; +HYDR-4100 PO; +QUET300T2 PO; -ZIPR80CA26 PO
[2018-02-15] MEDS ORDERED: ONDANSETRON HCL 4 MG/2 ML VIAL IVP ONE (01:00)
[2018-02-15] MEDS ORDERED: NACL 0.9% 1,000 ML IV ONE ×3 (01:00→02:15)
[2018-02-15] MEDS ORDERED: NALOXONE HCL 2 MG/2 ML SYR IVP ONE (01:00)
[2018-02-15] MEDS ORDERED: NALOXONE HCL 2 MG/2 ML SYR ONE (01:06)
[2018-02-15 01:07] LABS: BILIRUBIN,URINE NEGATIVE (NEGATIVE); BLOOD, URINE NEGATIVE (NEGATIVE); CLARITY/URINE SL HAZY (CLEAR); COLOR,URINE YELLOW (YELLOW); GLUCOSE,URINE NEGATIVE (NEGATIVE); KETONES,URINE NEGATIVE (NEGATIVE); LEUKOCYTE ESTERASE ,URINE NEGATIVE (NEGATIVE); NITRITE, URINE NEGATIVE (NEGATIVE); PH,URINE 5.5 (5.0-8.0); PROTEIN URINE NEGATIVE (NEGATIVE); UROBILINOGEN,URINE 0.2 (0.2-1.0)
[2018-02-15] MEDS ORDERED: FLUMAZENIL 0.1 MG/ML IVP ONE ×4 (01:09→01:30)
[2018-02-15 01:30] LABS: BARBITURATE, URINE POSITIVE (NEG <=200); BENZODIAZEPINE, URINE POSITIVE (NEG <=150); UR TRICYCLIC ANTIDEPRESSANTS POSITIVE (NEG <=300); URINE AMPHETAMINE POSITIVE (NEG <=500)
[2018-02-15 01:31] LABS: BASOPHILS % (AUTO) 0.3 % (0.0-2.0); EOSINOPHILS # (AUTO) 0.1 K/uL (0.0-0.4); EOSINOPHILS % (AUTO) 0.8 % (0.0-4.0); HEMATOCRIT 35.6 % (36-48); HEMOGLOBIN 11.7 g/dL (12.0-16.0); LYMPHOCYTES # (AUTO) 0.9 K/uL (1.0-5.5); LYMPHOCYTES % (AUTO) 10.1 % (20.5-51.5); MEAN CORPUSCULAR HEMOGLOBIN 28 pg (27-31); MEAN CORPUSCULAR HGB CONC 33 % (32-36); MEAN CORPUSCULAR VOLUME 84 fL (79.0-98.0); MONOCYTES # (AUTO) 0.8 K/uL (0.0-1.0); MONOCYTES % (AUTO) 8.8 % (1.7-9.3); NEUTROPHILS # (AUTO) 7.1 K/uL (1.8-7.7); PLATELET COUNT (AUTO) 249 K/uL (130-430); RED BLOOD CELL COUNT(AUTO) 4.23 MIL/uL (4.2-6.2); RED CELL DISTRIBUTION WIDTH 14.3 % (9.0-15.0); WHITE BLOOD COUNT (AUTO) 8.9 K/uL (4.8-10.8)
[2018-02-15 01:31] LABS: CANNABINOID, URINE NEGATIVE (NEG <=50); COCAINE, URINE NEGATIVE (NEG <=150); METHAMPHETAMINES SCREEN,URINE NEGATIVE (NEG <=500); OPIATE, URINE NEGATIVE (NEG <=100); PHENCYCLIDINE SCREEN,URINE NEGATIVE (NEG <=25); URINE METHADONE NEGATIVE (NEG <=200); URINE OXYCODONE SCREEN NEGATIVE (NEG <=100); URINE PROPOXYPHENE SCREEN NEGATIVE (NEG <=300)
[2018-02-15] MEDS ORDERED: DICY10CA13 PO (01:31)
[2018-02-15] MEDS ORDERED: CAT.1 PO (01:32)
[2018-02-15] MEDS ORDERED: OXCA300T4 PO (01:33)
[2018-02-15] MEDS ORDERED: NOR10 PO (01:33)
[2018-02-15] MEDS ORDERED: AZIL1TAB3 PO (01:34)
[2018-02-15] MEDS ORDERED: BUTA1CAP45 PO (01:35)
[2018-02-15] MEDS ORDERED: METO25TA6 PO (01:35)
[2018-02-15] MEDS ORDERED: ASPI-858 PO (01:36)
[2018-02-15] MEDS ORDERED: OXYC-580 PO (01:36)
[2018-02-15] MEDS ORDERED: DEXT20TA6 PO (01:38)
[2018-02-15] MEDS ORDERED: ZOLP10TA2 PO (01:40)
[2018-02-15 01:59] LABS: INR 1.1 (0.8-1.2)
[2018-02-15 02:03] LABS: ANION GAP 8 (5-15); CALCIUM 8.4 mg/dL (8.4-11.0); CHLORIDE 104 mmol/L (98-107); CREATININE 1.29 mg/dL (0.55-1.30); SODIUM SERUM 139 mmol/L (136-145)
[2018-02-15 02:04] LABS: ALANINE AMINOTRANSFERASE 188 U/L (12-78); ALBUMIN 3.2 g/dL (3.4-4.8); ASPARTATE AMINOTRANSFERASE 214 U/L (10-37); GLUCOSE 147 mg/dL (70-99); POTASSIUM 3.1 mmol/L (3.5-5.1); TOTAL BILIRUBIN 0.4 mg/dL (0.0-1.0); UREA NITROGEN, BLOOD 35 mg/dL (8-21)
[2018-02-15 02:12] LABS: ALCOHOL, BLOOD < 3 mg/dL (<10)
[2018-02-15] MEDS ORDERED: POTASSIUM CHLORIDE 40 MEQ in NS 250 ML IV ONE (02:15)
[2018-02-15 02:18] LABS: ACETAMINOPHEN 1 ug/mL (1-30)
[2018-02-15] MEDS ORDERED: KCL 40 mEq in 100 mL (PREMIX) 100 ML IV ONE ×2 (02:39→02:45)
[2018-02-15 03:21] VITALS: BP_SYST 112
[2018-02-15] MEDS: LR 1,000 ML IV SCH ×3 (04:10→14:15)
[2018-02-15] MEDS: LORazepam 2 MG/ML VIAL IVP PRN ×2 (04:35→13:34)
[2018-02-15 08:57] VITALS: BP_SYST 106
[2018-02-15 11:30] VITALS: BP_SYST 110
[2018-02-15] MEDS ORDERED: FIORCET PO PRN (12:45)
[2018-02-15] MEDS ORDERED: DEXTROSE 50% JECT 50 ML DISP.SYRIN IVP PRN (12:45)
[2018-02-15] MEDS ORDERED: POTASSIUM CHLORIDE 20 MEQ TAB.PRT.SR PO ONE (13:00)
[2018-02-15] MEDS ORDERED: METOPROLOL TARTRATE 25 MG TABLET PO ONE (13:15)
[2018-02-15] MEDS ORDERED: PANTOPRAZOLE SODIUM 40 MG/VIAL (PROTONIX) IVP ONE (13:15)
[2018-02-15] MEDS: oxyCODONE HCL 5 MG TABLET PO PRN (14:08)
[2018-02-15 15:33] VITALS: BP_SYST 145
[2018-02-15] MEDS ORDERED: HALOPERIDOL LACTATE 5 MG/ML VIAL IM PRN (16:15)
[2018-02-15] MEDS: DICYCLOMINE HCL 10 MG CAPSULE PO SCH ×2 (17:27→20:41)
[2018-02-15 20:03] VITALS: BP_SYST 117
[2018-02-15] MEDS: POTASSIUM CHLORIDE 20 MEQ TAB.PRT.SR PO SCH (20:41)
[2018-02-15] MEDS: QUEtiapine FUMARATE 100 MG TABLET PO SCH (20:42)
[2018-02-15] MEDS: OXcarbazepine 150 MG TABLET(TRILEPTAL) PO SCH (20:42)
[2018-02-15] MEDS: METOPROLOL TARTRATE 25 MG TABLET PO SCH (20:42)
[2018-02-15] MEDS: INSULIN REGULAR, HUMAN 100 UNITS/ML, 10 ML VIAL (novoLIN R) SUBCUT PRN (20:47)
[2018-02-15] MEDS: clonazePAM 0.5 MG TABLET PO PRN (20:57)
[2018-02-16] MEDS: LR 1,000 ML IV SCH ×3 (00:40→23:49)
[2018-02-16 00:59] VITALS: BP_SYST 106
[2018-02-16 06:08] LABS: HEPATITIS A AB, IgM Negative (Negative); HEPATITIS B CORE AB, IgM Negative (Negative); HEPATITIS B SURFACE AG Negative (Negative)
[2018-02-16] MEDS: INSULIN REGULAR, HUMAN 100 UNITS/ML, 10 ML VIAL (novoLIN R) SUBCUT PRN ×2 (06:24→20:49)
[2018-02-16] MEDS: LORazepam 2 MG/ML VIAL IVP PRN ×3 (06:27→18:29)
[2018-02-16] MEDS: DICYCLOMINE HCL 10 MG CAPSULE PO SCH ×4 (06:33→20:45)
[2018-02-16 07:01] LABS: BASOPHILS % (AUTO) 0.5 % (0.0-2.0); EOSINOPHILS # (AUTO) 0.1 K/uL (0.0-0.4); HEMATOCRIT 36.1 % (36-48); HEMOGLOBIN 11.7 g/dL (12.0-16.0); LYMPHOCYTES # (AUTO) 1.2 K/uL (1.0-5.5); LYMPHOCYTES % (AUTO) 18.7 % (20.5-51.5); MEAN CORPUSCULAR HEMOGLOBIN 28 pg (27-31); MEAN CORPUSCULAR HGB CONC 33 % (32-36); MEAN CORPUSCULAR VOLUME 86 fL (79.0-98.0); MONOCYTES # (AUTO) 0.6 K/uL (0.0-1.0); MONOCYTES % (AUTO) 8.9 % (1.7-9.3); NEUTROPHILS # (AUTO) 4.7 K/uL (1.8-7.7); NEUTROPHILS % (AUTO) 70.9 % (40.0-70.0); PLATELET COUNT (AUTO) 237 K/uL (130-430); RED BLOOD CELL COUNT(AUTO) 4.19 MIL/uL (4.2-6.2); RED CELL DISTRIBUTION WIDTH 13.9 % (9.0-15.0); WHITE BLOOD COUNT (AUTO) 6.6 K/uL (4.8-10.8)
[2018-02-16 07:41] LABS: CALCIUM 8.9 mg/dL (8.4-11.0); CREATININE 0.84 mg/dL (0.55-1.30); TOTAL BILIRUBIN 0.3 mg/dL (0.0-1.0)
[2018-02-16 08:00] VITALS: BP_SYST 134
[2018-02-16] MEDS ORDERED: [UNRECOGNIZED DRUG - OTHER] PO SCH (09:00)
[2018-02-16] MEDS ORDERED: CHLORTHALIDONE PO SCH (09:00)
[2018-02-16] MEDS ORDERED: AZILSARTAN PO SCH (09:00)
[2018-02-16] MEDS: oxyCODONE HCL 5 MG TABLET PO PRN ×2 (09:11→15:19)
[2018-02-16] MEDS: PANTOPRAZOLE SODIUM 40 MG/VIAL (PROTONIX) IVP SCH (09:11)
[2018-02-16] MEDS: POTASSIUM CHLORIDE 20 MEQ TAB.PRT.SR PO SCH ×2 (09:11→20:45)
[2018-02-16] MEDS: ASPIRIN 325 MG TABLET PO SCH (09:12)
[2018-02-16] MEDS: OXcarbazepine 150 MG TABLET(TRILEPTAL) PO SCH ×2 (09:12→20:44)
[2018-02-16] MEDS: cloNIDine HCL 0.1 MG TABLET PO SCH (09:13)
[2018-02-16] MEDS: amLODIPine BESYLATE 10 MG TABLET PO SCH (09:14)
[2018-02-16] MEDS: METOPROLOL TARTRATE 25 MG TABLET PO SCH ×2 (09:14→20:45)
[2018-02-16 13:00] VITALS: BP_SYST 135
[2018-02-16 16:00] VITALS: BP_SYST 133
[2018-02-16 20:20] VITALS: BP_SYST 141
[2018-02-16] MEDS: clonazePAM 0.5 MG TABLET PO PRN (20:43)
[2018-02-16] MEDS: QUEtiapine FUMARATE 100 MG TABLET PO SCH (20:44)
[2018-02-17 00:12] VITALS: BP_SYST 125
[2018-02-17] MEDS: LORazepam 2 MG/ML VIAL IVP PRN ×2 (03:34→08:10)
[2018-02-17] MEDS: oxyCODONE HCL 5 MG TABLET PO PRN (04:30)
[2018-02-17] MEDS: DICYCLOMINE HCL 10 MG CAPSULE PO SCH ×2 (06:05→10:39)
[2018-02-17] MEDS: INSULIN REGULAR, HUMAN 100 UNITS/ML, 10 ML VIAL (novoLIN R) SUBCUT PRN (06:08)
[2018-02-17 08:00] VITALS: BP_SYST 131
[2018-02-17] MEDS: PANTOPRAZOLE SODIUM 40 MG/VIAL (PROTONIX) IVP SCH (08:10)
[2018-02-17] MEDS: ASPIRIN 325 MG TABLET PO SCH (08:16)
[2018-02-17] MEDS: OXcarbazepine 150 MG TABLET(TRILEPTAL) PO SCH (08:16)
[2018-02-17] MEDS: METOPROLOL TARTRATE 25 MG TABLET PO SCH (08:17)
[2018-02-17] MEDS: amLODIPine BESYLATE 10 MG TABLET PO SCH (08:18)
[2018-02-17] MEDS: POTASSIUM CHLORIDE 20 MEQ TAB.PRT.SR PO SCH (08:19)
[2018-02-17] MEDS: cloNIDine HCL 0.1 MG TABLET PO SCH (08:19)
[2018-02-17 09:32] VITALS: BP_SYST 133
[2018-02-17 12:02] VITALS: BP_SYST 126
== END 2018-02-17 12:46 | disposition home or self-care (01) | DRG 917 ==
LOC: SED 00:25 → STU 02:38
PROVIDERS: ADMIT Internal Medicine; ATTEND Internal Medicine
DX: T50.991A Poisoning by other drugs, medicaments and biological substances, accidental (unintentional), initial encounter (principal); G92 Toxic encephalopathy; B17.9 Acute viral hepatitis, unspecified; R73.03 Prediabetes; F41.9 Anxiety disorder, unspecified; K57.90 Diverticulosis of intestine, part unspecified, without perforation or abscess without bleeding; I10 Essential (primary) hypertension; R40.2420 Glasgow coma scale score 9-12, unspecified time; K58.9 Irritable bowel syndrome, unspecified; F17.210 Nicotine dependence, cigarettes, uncomplicated; H53.149 Visual discomfort, unspecified; E87.6 Hypokalemia; R74.0 Nonspecific elevation of levels of transaminase and lactic acid dehydrogenase [LDH]; D64.9 Anemia, unspecified; I95.9 Hypotension, unspecified; R73.9 Hyperglycemia, unspecified; F31.9 Bipolar disorder, unspecified; Z86.73 Personal history of transient ischemic attack (TIA), and cerebral infarction without residual deficits; Z87.11 Personal history of peptic ulcer disease; Z79.899 Other long term (current) drug therapy; Z79.01 Long term (current) use of anticoagulants; Z88.8 Allergy status to other drugs, medicaments and biological substances; Z91.011 Allergy to milk products; Z79.82 Long term (current) use of aspirin; Y92.89 Other specified places as the place of occurrence of the external cause
CPT/HCPCS: 36415; 70450-TC; 70551; 71045; 76700-TC; 80053; 80074; 80307; 81003; 82140-TC; 82962; 83735-TC; 84484; 85025; 85610-TC; 85730-TC; 87081; 93005; 95816; 96361; 96365; 96375; 99285; C9113; G0480; G0481; G0482; J1630; J1815; J2060; J2310; J2405; J3480; J3490; J7030; J7050; J7120

== ENCOUNTER 2018-08-05 17:38 | Inpatient (IN) | payer BC ==
[~2018-08-05] VITALS: Ht 160 cm; Wt 79.9 kg
[~2018-08-05 17:38] MED LIST changes: +ASPI-858 PO; +AZIL1TAB3 PO; +CAT.1 PO; -HYDR-4100 PO; +METO25TA6 PO; +NOR10 PO; +OXCA300T4 PO; -TIZA4TAB11 PO
[2018-08-05 17:41] VITALS: BP_SYST 142
[2018-08-05 18:18] LABS: BASOPHILS % (AUTO) 0.3 % (0.0-2.0); EOSINOPHILS % (AUTO) 0.2 % (0.0-4.0); HEMATOCRIT 38.6 % (36-48); HEMOGLOBIN 12.6 g/dL (12.0-16.0); LYMPHOCYTES # (AUTO) 1.7 K/uL (1.0-5.5); LYMPHOCYTES % (AUTO) 11.1 % (20.5-51.5); MEAN CORPUSCULAR HEMOGLOBIN 26 pg (27-31); MEAN CORPUSCULAR HGB CONC 33 % (32-36); MEAN CORPUSCULAR VOLUME 80 fL (79.0-98.0); MONOCYTES # (AUTO) 1.1 K/uL (0.0-1.0); MONOCYTES % (AUTO) 7.1 % (1.7-9.3); NEUTROPHILS # (AUTO) 12.4 K/uL (1.8-7.7); NEUTROPHILS % (AUTO) 81.3 % (40.0-70.0); PLATELET COUNT (AUTO) 279 K/uL (130-430); RED BLOOD CELL COUNT(AUTO) 4.82 MIL/uL (4.2-6.2); RED CELL DISTRIBUTION WIDTH 13.7 % (9.0-15.0); WHITE BLOOD COUNT (AUTO) 15.2 K/uL (4.8-10.8)
[2018-08-05 18:34] LABS: CALCIUM 9.4 mg/dL (8.4-11.0); CREATININE 1.08 mg/dL (0.55-1.30)
[2018-08-05 18:36] LABS: INR 1.1 (0.8-1.2); PROTHROMBIN TIME 11.3 SECS (9.5-12.5)
[2018-08-05 18:49] LABS: ALBUMIN 4.1 g/dL (3.4-4.8)
[2018-08-05 19:00] LABS: BILIRUBIN,URINE 1+ (NEGATIVE); BLOOD, URINE NEGATIVE (NEGATIVE); CLARITY/URINE CLEAR (CLEAR); COLOR,URINE YELLOW (YELLOW); GLUCOSE,URINE NEGATIVE (NEGATIVE); KETONES,URINE 1+ (NEGATIVE); LEUKOCYTE ESTERASE ,URINE NEGATIVE (NEGATIVE); NITRITE, URINE NEGATIVE (NEGATIVE); PH,URINE 5.5 (5.0-8.0); PROTEIN URINE 1+ (NEGATIVE); UROBILINOGEN,URINE 0.2 (0.2-1.0)
[2018-08-05 19:05] LABS: BACTERIA,URINE MODERATE /HPF (None Seen); HYALINE CASTS, URINE 0-10 /LPF (None Seen)
[2018-08-05 19:10] LABS: CKMB RELATIVE INDEX 0.4 (0.0-2.9); CREATINE KINASE MB 8.7 ng/mL (0-3.6)
[2018-08-05] MEDS ORDERED: PIPERACILLIN/TAZO 3.375 GM in NS 50 ML IV ONE (20:30)
[2018-08-05] MEDS ORDERED: LORazepam 2 MG/ML VIAL (FOR ER USE) IVP ONE (20:30)
[2018-08-05] MEDS ORDERED: POTASSIUM CHLORIDE 20 MEQ TAB.PRT.SR PO ONE (20:30)
[2018-08-05] MEDS ORDERED: NACL 0.9% 1,000 ML IV ONE (20:30)
[2018-08-05 20:44] LABS: BARBITURATE, URINE NEGATIVE (NEG <=200); BENZODIAZEPINE, URINE NEGATIVE (NEG <=150); CANNABINOID, URINE POSITIVE (NEG <=50); COCAINE, URINE NEGATIVE (NEG <=150); METHAMPHETAMINES SCREEN,URINE NEGATIVE (NEG <=500); OPIATE, URINE NEGATIVE (NEG <=100); PHENCYCLIDINE SCREEN,URINE NEGATIVE (NEG <=25); UR TRICYCLIC ANTIDEPRESSANTS NEGATIVE (NEG <=300); URINE AMPHETAMINE POSITIVE (NEG <=500); URINE METHADONE NEGATIVE (NEG <=200); URINE OXYCODONE SCREEN NEGATIVE (NEG <=100); URINE PROPOXYPHENE SCREEN NEGATIVE (NEG <=300)
[2018-08-05] MEDS ORDERED: PIPERACILLIN/TAZOBACTAM 3.375 GM/VIAL (ZOSYN) IV ONE (20:55)
[2018-08-05] MEDS ORDERED: MIRT7.5T11 PO (21:20)
[2018-08-05] MEDS ORDERED: GABA-529 PO (21:20)
[2018-08-05] MEDS ORDERED: NITSL SL (21:20)
[2018-08-05] MEDS ORDERED: NACL 0.9% 1,000 ML IV SCH (21:30)
[2018-08-05] MEDS ORDERED: MORPHINE 4 MG/ML INJ. SYRINGE IVP ONE (21:30)
[2018-08-05 22:00] VITALS: BP_SYST 120
[2018-08-05] MEDS ORDERED: VANCOMYCIN HCL 1,000 MG in NS 250 ML IV SCH (22:30)
[2018-08-05] MEDS ORDERED: MORPHINE 4 MG/ML INJ. SYRINGE IVP PRN (23:00)
[2018-08-05] MEDS ORDERED: ONDANSETRON HCL 4 MG/2 ML VIAL IVP PRN (23:00)
[2018-08-05] MEDS ORDERED: VANCOMYCIN HCL 1000 MG/VIAL IV ONE (23:42)
[2018-08-06] VITALS (7 sets, daily range): BP systolic 105–141
[2018-08-06] MEDS: MORPHINE 4 MG/ML INJ. SYRINGE IVP PRN ×3 (01:21→16:45)
[2018-08-06] MEDS ORDERED: clonazePAM 0.5 MG TABLET PO PRN (01:45)
[2018-08-06 10:40] LABS: BASOPHILS % (AUTO) 0.2 % (0.0-2.0); EOSINOPHILS # (AUTO) 0.2 K/uL (0.0-0.4); EOSINOPHILS % (AUTO) 2.1 % (0.0-4.0); HEMATOCRIT 35.7 % (36-48); HEMOGLOBIN 11.7 g/dL (12.0-16.0); LYMPHOCYTES # (AUTO) 1.8 K/uL (1.0-5.5); LYMPHOCYTES % (AUTO) 20.4 % (20.5-51.5); MEAN CORPUSCULAR HEMOGLOBIN 26 pg (27-31); MEAN CORPUSCULAR HGB CONC 33 % (32-36); MEAN CORPUSCULAR VOLUME 80 fL (79.0-98.0); MONOCYTES # (AUTO) 0.8 K/uL (0.0-1.0); MONOCYTES % (AUTO) 9.1 % (1.7-9.3); NEUTROPHILS # (AUTO) 5.9 K/uL (1.8-7.7); NEUTROPHILS % (AUTO) 68.2 % (40.0-70.0); PLATELET COUNT (AUTO) 264 K/uL (130-430); RED BLOOD CELL COUNT(AUTO) 4.47 MIL/uL (4.2-6.2); RED CELL DISTRIBUTION WIDTH 13.8 % (9.0-15.0); WHITE BLOOD COUNT (AUTO) 8.6 K/uL (4.8-10.8)
[2018-08-06 10:51] LABS: ANION GAP 12 (5-15); CALCIUM 8.9 mg/dL (8.4-11.0); CHLORIDE 100 mmol/L (98-107); CREATININE 0.74 mg/dL (0.55-1.30); GLUCOSE 120 mg/dL (70-99); POTASSIUM 3.2 mmol/L (3.5-5.1); SODIUM SERUM 137 mmol/L (136-145); UREA NITROGEN, BLOOD 15 mg/dL (8-21)
[2018-08-06 10:56] LABS: GFR AFRICAN AMERICAN 104 mL/min (>90)
[2018-08-06 11:06] LABS: ALANINE AMINOTRANSFERASE 56 U/L (12-78); ALBUMIN 3.5 g/dL (3.4-4.8); ASPARTATE AMINOTRANSFERASE 77 U/L (10-37); TOTAL BILIRUBIN 0.7 mg/dL (0.0-1.0)
[2018-08-06 11:30] LABS: CKMB RELATIVE INDEX 0.6 (0.0-2.9); CREATINE KINASE MB 12.9 ng/mL (0-3.6)
[2018-08-06] MEDS ORDERED: clonazePAM 0.5 MG TABLET PO ONE (12:00)
[2018-08-06] MEDS ORDERED: VANCOMYCIN HCL 1,000 MG in NS 250 ML IV SCH (13:00)
[2018-08-06] MEDS ORDERED: HALOPERIDOL 1 MG TABLET (HALDOL) PO ONE (20:15)
[2018-08-06] MEDS ORDERED: LORazepam 1 MG TABLET PO ONE (20:15)
[2018-08-06] MEDS ORDERED: TEMAZEPAM 15 MG CAPSULE PO SCH (21:00)
[2018-08-06] MEDS ORDERED: clonazePAM 0.5 MG TABLET PO SCH (21:00)
[2018-08-06] MEDS ORDERED: TEMAZEPAM 15 MG CAPSULE PO PRN (21:00)
== END 2018-08-07 00:15 | DRG 603 ==
LOC: SED 17:38 → SMU 21:26 → STU 08-06 11:50 → SMU 08-06 20:00
PROVIDERS: ADMIT Internal Medicine Hospice and Palliative Medicine; ATTEND Internal Medicine Hospice and Palliative Medicine
DX: L03.116 Cellulitis of left lower limb (principal); F30.2 Manic episode, severe with psychotic symptoms; M62.82 Rhabdomyolysis; R65.10 Systemic inflammatory response syndrome (SIRS) of non-infectious origin without acute organ dysfunction; L03.115 Cellulitis of right lower limb; I10 Essential (primary) hypertension; F41.9 Anxiety disorder, unspecified; K57.90 Diverticulosis of intestine, part unspecified, without perforation or abscess without bleeding; E87.6 Hypokalemia; R74.0 Nonspecific elevation of levels of transaminase and lactic acid dehydrogenase [LDH]; Z86.73 Personal history of transient ischemic attack (TIA), and cerebral infarction without residual deficits; Z87.891 Personal history of nicotine dependence; Z88.8 Allergy status to other drugs, medicaments and biological substances; Z91.011 Allergy to milk products; Z79.899 Other long term (current) drug therapy; Z91.14 Patient's other noncompliance with medication regimen
CPT/HCPCS: 36415; 71045; 80053; 80307; 81000-TC; 82550-TC; 82553-TC; 82607; 83605; 83880; 84443-TC; 84484; 85025; 85379; 85610-TC; 85730-TC; 87040-TC; 87086; 93005; 93306; 93970; 96365; 96375; 99285; J2060; J2270; J2543; J3370; J7050

== ENCOUNTER 2019-06-15 20:42 | Emergency (ER) | payer BC ==
[~2019-06-15] VITALS: Ht 157.5 cm; Wt 77.6 kg
[2019-06-15 20:42] VITALS: BP_SYST 56
[~2019-06-15 20:42] MED LIST changes: +GABA-529 PO; +MIRT7.5T11 PO; +NITSL SL
--- NOTE | 2019-06-15 21:00 | NUR ---
Patient to ER bed 1 to gown for evaluation. Side rails up. resumed care
[2019-06-15] MEDS ORDERED: METOCLOPRAMIDE HCL 10 MG/2 ML VIAL IVP ONE (21:15)
[2019-06-15] MEDS ORDERED: NACL 0.9% 1,000 ML IV ONE (21:15)
[2019-06-15] MEDS ORDERED: KETOROLAC TROMETHAMINE 30 MG VIAL IVP ONE (21:15)
[2019-06-15] MEDS ORDERED: DIPHENHYDRAMINE INJ 50 MG/ML VIAL IVP ONE (21:15)
--- NOTE | 2019-06-15 21:15 | NUR ---
Patient came to the ER due to right arm and hip pain. Patient advised that she has fallen between the closet and table. Patient pain is sharp and 10/10. Patient is anxious and keep mentioning a stroke she had in 2018. Patient not presenting any signs of stroke. MD made aware.
--- NOTE | 2019-06-15 21:16 | NUR ---
ER Dr. Lozano at bedside examining patient.
[2019-06-15 21:22] LABS: BASOPHILS % (AUTO) 0.4 % (0.0-2.0); CALCIUM 8.9 mg/dL (8.4-11.0); CREATININE 0.76 mg/dL (0.55-1.30); EOSINOPHILS # (AUTO) 0.1 K/uL (0.0-0.4); EOSINOPHILS % (AUTO) 0.7 % (0.0-4.0); HEMATOCRIT 45.6 % (36-48); LYMPHOCYTES # (AUTO) 2.3 K/uL (1.0-5.5); LYMPHOCYTES % (AUTO) 30.6 % (20.5-51.5); MEAN CORPUSCULAR HEMOGLOBIN 28 pg (27-31); MEAN CORPUSCULAR HGB CONC 33 % (32-36); MEAN CORPUSCULAR VOLUME 84 fL (79.0-98.0); MONOCYTES # (AUTO) 0.6 K/uL (0.0-1.0); MONOCYTES % (AUTO) 7.7 % (1.7-9.3); NEUTROPHILS # (AUTO) 4.5 K/uL (1.8-7.7); NEUTROPHILS % (AUTO) 60.6 % (40.0-70.0); PLATELET COUNT (AUTO) 295 K/uL (130-430); POTASSIUM 3.3 mmol/L (3.5-5.1); RED BLOOD CELL COUNT(AUTO) 5.42 MIL/uL (4.2-6.2); RED CELL DISTRIBUTION WIDTH 15.9 % (9.0-15.0); WHITE BLOOD COUNT (AUTO) 7.5 K/uL (4.8-10.8)
[2019-06-15 21:28] LABS: ALBUMIN 4.3 g/dL (3.4-4.8); TOTAL BILIRUBIN 0.3 mg/dL (0.0-1.0)
--- NOTE | 2019-06-15 21:40 | NUR ---
Patient transported to radiology via [facility]char, accompanied by julianne.
--- NOTE | 2019-06-15 21:46 | NUR ---
Pt observed ambulating to the restroom without assistance.
[2019-06-15 21:54] LABS: CKMB RELATIVE INDEX 0.8 (0.0-2.9); CREATINE KINASE MB 2.2 ng/mL (0-3.6)
[2019-06-15] MEDS ORDERED: POTASSIUM CHLORIDE 20 MEQ TAB.PRT.SR PO ONE (23:00)
[2019-06-15] MEDS ORDERED: POTASSIUM CHLORIDE 20 MEQ TAB.PRT.SR ONE (23:54)
[2019-06-16 00:33] VITALS: BP_SYST 56
== END 2019-06-15 21:46 | disposition home or self-care (01) ==
LOC: SED 20:42
DX: S62.91XA Unspecified fracture of right hand, initial encounter for closed fracture (principal); I10 Essential (primary) hypertension; R51 Headache; R11.2 Nausea with vomiting, unspecified; F41.9 Anxiety disorder, unspecified; R19.7 Diarrhea, unspecified; Z79.82 Long term (current) use of aspirin; Z79.899 Other long term (current) drug therapy; Z88.8 Allergy status to other drugs, medicaments and biological substances; Z91.011 Allergy to milk products; W01.0XXA Fall on same level from slipping, tripping and stumbling without subsequent striking against object, initial encounter; Y93.89 Activity, other specified; Y92.89 Other specified places as the place of occurrence of the external cause; Y99.8 Other external cause status
CPT/HCPCS: 29125; 36415; 70450; 73110; 73130; 80053; 82550; 82553; 85025; 85610; 85730; 93005; 96361; 96374; 96375; 99285; J1200; J1885; J2765; J7030